=== PATIENT | male | born 1940 | race Two or more races ===

== ENCOUNTER 2019-08-23 08:09 | Outpatient (CLI) | payer OTHER ==
[~2019-08-23 08:09] MED LIST: AVANDIA4 MG PO; GLUCOPHAGE XR500 MG PO; LISINOPRIL-HCTZ1 T15 PO; LOPID; RELAFEN500 MG PO; SYNTHROID150 MCG
== END 2019-08-23 09:00 | disposition home or self-care (01) ==
LOC: NUCLEAR 08:09
DX: I11.9 Hypertensive heart disease without heart failure (principal); R01.1 Cardiac murmur, unspecified

== ENCOUNTER 2021-12-14 08:43 | Outpatient (CLI) | payer OTHER | END 2021-12-14 08:45 | disposition home or self-care (01) | LOC: NUCLEAR 08:43 | PROVIDERS: ATTEND Internal Medicine | DX: I49.9 Cardiac arrhythmia, unspecified (principal); Z00.00 Encounter for general adult medical examination without abnormal findings ==

== ENCOUNTER 2021-12-21 07:19 | Outpatient (CLI) | payer OTHER | END 2021-12-21 07:20 | disposition home or self-care (01) | LOC: NUCLEAR 07:19 | PROVIDERS: ATTEND Internal Medicine | DX: I20.9 Angina pectoris, unspecified (principal) | CPT/HCPCS: 78452; 93017; A9500 ==

== ENCOUNTER 2023-04-06 08:08 | Outpatient (CLI) | payer OTHER | END 2023-04-06 08:22 | disposition home or self-care (01) | LOC: TOM 08:08 | PROVIDERS: ATTEND Internal Medicine Gastroenterology | DX: Z86.010 Personal history of colon polyps (principal); K57.30 Diverticulosis of large intestine without perforation or abscess without bleeding; K56.600 Partial intestinal obstruction, unspecified as to cause ==

== ENCOUNTER 2023-04-15 09:49 | Emergency (ER) | payer OTHER ==
[~2023-04-15] VITALS: Ht 160 cm; Wt 69.9 kg
[2023-04-15] MEDS ORDERED: SULFADIAZINE500 MG (10:09)
[2023-04-15] MEDS ORDERED: GLIMEPIRIDE4 MG (10:09)
[2023-04-15] MEDS ORDERED: TOPROL XL25 M1 (10:09)
[2023-04-15] MEDS ORDERED: TAMS0.4C (10:10)
[2023-04-15] MEDS ORDERED: PROSCAR5 MG (10:10)
== END 2023-04-15 15:37 | disposition home or self-care (01) ==
LOC: ER 09:49
DX: N40.1 Benign prostatic hyperplasia with lower urinary tract symptoms (principal); R33.8 Other retention of urine; E03.9 Hypothyroidism, unspecified; I10 Essential (primary) hypertension; Z87.442 Personal history of urinary calculi; Z91.013 Allergy to seafood

== ENCOUNTER 2023-04-19 07:16 | Outpatient (CLI) | payer OTHER ==
[~2023-04-19 07:16] MED LIST changes: +GLIMEPIRIDE4 MG; +PROSCAR5 MG; +SULFADIAZINE500 MG; +TAMS0.4C; +TOPROL XL25 M1
== END 2023-04-19 07:30 | disposition home or self-care (01) ==
LOC: MRI 07:16
PROVIDERS: ATTEND Urology
DX: C64.1 Malignant neoplasm of right kidney, except renal pelvis (principal)
CPT/HCPCS: 72197; 74183; Q9965

== ENCOUNTER 2025-09-20 06:50 | Emergency (ER) | payer OTHER ==
[~2025-09-20] VITALS: Ht 162.6 cm; Wt 69.9 kg
[2025-09-20] MEDS ORDERED: 0.9 % SODIUM CHLORIDE 1,000 ML IV ONE (07:45)
[2025-09-20 09:52] LABS: BASO % 0.3 % (0.1-1.2); EOS # 0.06 (0.04-0.54); EOS % 0.6 % (0.7-7.0); LYMPH # 0.73 (1.18-3.74); LYMPH % 6.8 % (19.3-53.1); MEAN PLATELET VOLUME 11.30 fl (9.4-12.4); MONO # 0.89 (0.24-0.82); MONO % 8.3 % (4.7-12.5); NEUT # 9.02 (1.56-6.13); NEUT % 83.6 % (34.0-71.1); RED CELL DISTRIBUTION WIDTH 14.1 % (11.6-14.4)
[2025-09-20 10:25] LABS: INR 1.12
[2025-09-20 10:26] LABS: BUN CREA RATIO 23.0 (7.0-25.0); CREATININE SERUM 1.04 mg/dL (0.70-1.30); GFR 68.04; GLUCOSE FASTING 192.0 mg/dL (65-100); OSMOLALITY SERUM 294.0 MOSM/KG (275-295)
[2025-09-20 10:40] LABS: URINE APPEARANCE Clear; URINE BILIRRUBIN Negative (NEGATIVE); URINE BLOOD Large; URINE COLOR Yellow; URINE KETONE Negative (NEGATIVE); URINE LEUKOCYTE Small; URINE NITRATE Positive; URINE PROTEIN Trace (NEGATIVE); URINE UROBILINOGEN 1.0 E.U./dl
[2025-09-20 10:43] LABS: URINE EPITHELIAL CELLS 6.9 uL (0.0-38.8); URINE RBC 1427.1 uL (0.0-20.8); URINE WBC 121.6 uL (0.0-23.2)
[2025-09-20 10:50] LABS: URINE BACTERIA > 9821.5 uL (0.0-1933); URINE CAST 0.43 uL (0.0-1.40); URINE GLUCOSE 100 MG/DL (NEGATIVE)
[2025-09-20] MEDS ORDERED: CEFTRIAXONE SODIUM 2,000 MG VIAL IV ONE (11:00)
== END 2025-09-20 14:37 | disposition home or self-care (01) ==
LOC: ER 06:51
PROVIDERS: Emergency Medicine
DX: R31.9 Hematuria, unspecified (principal); I10 Essential (primary) hypertension; E78.49 Other hyperlipidemia; N39.0 Urinary tract infection, site not specified; E11.9 Type 2 diabetes mellitus without complications; Z79.84 Long term (current) use of oral hypoglycemic drugs
CPT/HCPCS: 36415; 74176; 96365; 96366; 99284; J0696; J7030